=== PATIENT | male | born 1950 | race Caucasian/White ===

== ENCOUNTER 2016-10-15 07:19 | Emergency (ER) | payer OTHER ==
[~2016-10-15] VITALS: Ht 172.7 cm; Wt 61.2 kg
[2016-10-15 08:01] LABS: Basophils # (auto) 0 uL; Basophils % (auto) 0.3 % (0.0-2.0); CONDITION Y; Eosinophils # (auto) 0.3 uL; Eosinophils % (auto) 3.9 % (0.0-7.0); Hematocrit 40.5 % (41.0-53.0); Hemoglobin 13.6 g/dL (13.5-17.5); Lymphocytes # (auto) 1.4 uL; Lymphocytes % (auto) 19.4 % (10.0-50.0); Mean Corpuscular Hemoglobin 31.6 pg (28.0-32.0); Mean Corpuscular Hgb Conc. 33.6 g/dL (32.0-36.0); Mean Corpuscular Volume 94.3 fL (80.0-100.0); Mean Platelet Volume 8.6 fL (7.4-10.4); Monocytes # (auto) 0.8 uL; Monocytes % (auto) 11.2 % (0.0-12.0); Neutrophils # (auto) 4.6 uL; Neutrophils % (auto) 65.2 % (37.0-80.0); Platelet Count (auto) 279 10^3/uL (140-450); Red Cell Distribution Width 14.8 % (11.6-16.0); White Blood Cell 7.1 10^3/uL (4.4-10.8)
[2016-10-15 08:20] LABS: Albumin 3.4 g/dL (3.4-5.0); BUN/Creatinine Ratio 13.4; Bilirubin, Total 0.3 mg/dL (0.2-1.0); Calcium 8.4 mg/dL (8.5-10.1); Potassium 3.3 mmol/L (3.5-5.1); Total Protein 6.6 g/dL (6.4-8.2)
[2016-10-15] MEDS ORDERED: InsuLIN REG 1unit/0.01ml Soln (100units/ml) IV ONE (09:00)
[2016-10-15] MEDS ORDERED: methylPREDNISolone SOD SUCC 125 MG/2 ML VL IV ONE (09:00)
[2016-10-15] MEDS ORDERED: ALBUTEROL SULF 2.5 MG/0.5ML(0.5%) NEB SOLN NEB ONE ×2 (09:00→11:15)
[2016-10-15] MEDS ORDERED: IPRATROPIUM BROM 0.5 MG/2.5ML INH SOL NEB ONE ×2 (09:00→11:15)
[2016-10-15] MEDS ORDERED: SODIUM CHLORIDE 0.9% 1,000 ML IV ONE (09:00)
[2016-10-15 10:22] VITALS: BP 110/63
[2016-10-15 10:23] LABS: Urine Bilirubin Negative (Negative); Urine Blood TRACE /uL (Negative); Urine Color Yellow (Yellow); Urine Ketone Negative (Negative); Urine Nitrite Negative (Negative); Urine RBC 12 /hpf (0 - 3); Urine Urobilinogen Normal (Negative); Urine WBC Clumps PRESENT /hpf (None Seen)
[2016-10-15 10:29] LABS: Urine Glucose 4+ mg/dL (Normal)
[2016-10-15] MEDS ORDERED: POTASSIUM CHL 20 Meq TABLET PO ONE (11:00)
[2016-10-15] MEDS ORDERED: LEVOFLOXACIN 500 MG TAB PO ONE (11:00)
== END 2016-10-15 12:30 | disposition home or self-care (01) ==
LOC: ER 07:19 → EDBD 07:19 → ER 11:52
DX: J45.901 Unspecified asthma with (acute) exacerbation (principal); E11.65 Type 2 diabetes mellitus with hyperglycemia; J44.9 Chronic obstructive pulmonary disease, unspecified; Z99.81 Dependence on supplemental oxygen; F17.210 Nicotine dependence, cigarettes, uncomplicated
CPT/HCPCS: 36415; 71010; 80053; 81001; 82962; 85025; 93005; 94640; 96361; 96374; 96375; 99285; J2930; J7030

== ENCOUNTER 2016-10-27 20:51 | Inpatient (IN) | payer OTHER, MEDICAID ==
[~2016-10-27] VITALS: Ht 182.9 cm; Wt 57.9 kg
[2016-10-27 21:41] LABS: Basophils # (auto) 0 uL; Basophils % (auto) 0.3 % (0.0-2.0); CONDITION Y; Eosinophils # (auto) 0.7 uL; Eosinophils % (auto) 7.9 % (0.0-7.0); Hemoglobin 14.6 g/dL (13.5-17.5); Lymphocytes # (auto) 1.7 uL; Lymphocytes % (auto) 19.7 % (10.0-50.0); Mean Corpuscular Hemoglobin 31.4 pg (28.0-32.0); Mean Corpuscular Hgb Conc. 33.1 g/dL (32.0-36.0); Mean Corpuscular Volume 94.8 fL (80.0-100.0); Mean Platelet Volume 8.5 fL (7.4-10.4); Monocytes # (auto) 0.6 uL; Monocytes % (auto) 7.2 % (0.0-12.0); Neutrophils # (auto) 5.6 uL; Neutrophils % (auto) 64.9 % (37.0-80.0); Platelet Count (auto) 386 10^3/uL (140-450); Red Cell Distribution Width 14.6 % (11.6-16.0); White Blood Cell 8.6 10^3/uL (4.4-10.8)
[2016-10-27 21:58] LABS: INR 0.96 (0.9-1.15); Partial Thromboplastin Time 25.1 sec (22.64-33.71); Prothrombin Time 10.5 sec (9.37-12.3)
[2016-10-27 22:02] LABS: Albumin 3.5 g/dL (3.4-5.0); Anion Gap 7 (5-15); Aspartate Aminotransferase 16 U/L (15-37); BUN/Creatinine Ratio 12.2; Blood Urea Nitrogen 10 mg/dL (7-18); Calcium 8.7 mg/dL (8.5-10.1); Carbon Dioxide 33 mmol/L (21-32); Chloride 103 mmol/L (98-107); GFR African American 120 mL/min; GFR Non-African American 99 mL/min; Glucose 290 mg/dL (74-106); Magnesium 2.2 mg/dL (1.6-2.6); Potassium 4.2 mmol/L (3.5-5.1); Sodium 143 mmol/L (136-145)
[2016-10-27 22:07] LABS: B-Type Natriuretic Peptide 0.87 pg/mL (0-100)
[2016-10-27 22:09] LABS: Allen Test Yes; Base Excess 6.1 mmol/L (-2.0-2.0); Blood 02Sat 98.2 % (96-100); Blood COHb 0.6 % (0.5-1.5); Blood MetHb 0.3 % (0.0-1.5); HCO3 34.3 mmol/L (22-26.0); HHb 1.8 % (0.0-5.0); MODE MASK - BIPAP; O2Hb 97.3 % (94.0-97.0); PCO2 66.1 mmHg (35.0-45.0); PCO2(T) 66.1 mmHg (35.0-45.0); PIP 12; PO2 160.1 mmHg (80.0-100.0); PO2(T) 160.1 mmHg (80.0-100.0); Sample Type Arterial; pH 7.333 (7.350-7.450)
[2016-10-27 22:10] LABS: Alkaline Phosphatase 99 U/L (45-117); Bilirubin, Total 0.4 mg/dL (0.2-1.0); Temperature: 23.5 C (20.0-25.0)
[2016-10-27] MEDS ORDERED: IPRATROPIUM BROM 0.5 MG/2.5ML INH SOL NEB ONE (22:30)
[2016-10-27] MEDS ORDERED: ALBUTEROL SULF 2.5 MG/0.5ML(0.5%) NEB SOLN NEB ONE (22:30)
[2016-10-27] MEDS ORDERED: FUROSEMIDE 20 MG/2 ML VIAL IV ONE (22:30)
[2016-10-28] VITALS (12 sets, daily range): BP systolic 97–130; BP diastolic 60–77
[2016-10-28] MEDS ORDERED: ALBUTEROL SULF 2.5 MG/0.5ML(0.5%) NEB SOLN NEB ONE (00:45)
[2016-10-28] MEDS ORDERED: LEVOFLOXACIN 500MG 100 ML IV ONE (00:45)
[2016-10-28] MEDS ORDERED: methylPREDNISolone SOD SUCC 125 MG/2 ML VL IV ONE (00:45)
[2016-10-28] MEDS ORDERED: IPRATROPIUM BROM 0.5 MG/2.5ML INH SOL NEB ONE (00:45)
[2016-10-28] MEDS ORDERED: SOD CHL 0.45% 1,000 ML IV ONE (01:00)
[2016-10-28] MEDS ORDERED: SUCCINYLCHOLINE CHLORIDE 20 MG/ML 10ML VIAL IV ONE ×2 (03:28→03:30)
[2016-10-28] MEDS ORDERED: ETOMIDATE (2MG/ML) 20ML VIAL IV ONE ×2 (03:28→03:30)
[2016-10-28] MEDS ORDERED: MIDAZOLAM DRIP 50 mg/50mL 50 ML IV ONE (03:30)
[2016-10-28] MEDS ORDERED: ALBUTEROL SULF 2.5 MG/0.5ML(0.5%) NEB SOLN ONE (03:40)
[2016-10-28] MEDS ORDERED: IPRATROPIUM BROM 0.5 MG/2.5ML INH SOL ONE (03:40)
[2016-10-28] MEDS: MIDAZOLAM DRIP 50 mg/50mL 50 ML IV SCH (03:51)
[2016-10-28] MEDS ORDERED: NOREPINEPHRINE BITARTRATE 250 ML IV ONE (04:32)
[2016-10-28] MEDS ORDERED: MORPHINE SULF INJ 2 MG/ML SYRINGE 1ML IV PRN (05:00)
[2016-10-28] MEDS ORDERED: NITROGLYCERIN 0.4 MG SL TAB SL PRN (05:00)
[2016-10-28] MEDS ORDERED: PROPOFOL 100 ML IV ONE (05:06)
[2016-10-28] MEDS ORDERED: DEXTROSE (50%) 50ML SYRG IV PRN (05:15)
[2016-10-28] MEDS: IPRATROPIUM BROM 0.5 MG/2.5ML INH SOL NEB SCH ×4 (05:28→23:58)
[2016-10-28] MEDS: ALBUTEROL SULF 2.5 MG/0.5ML(0.5%) NEB SOLN NEB SCH ×4 (05:28→23:58)
[2016-10-28] MEDS: NOREPINEPHRINE BITARTRATE 250 ML IV SCH (05:33)
[2016-10-28] MEDS: SOD CHL 0.45% 1,000 ML IV SCH ×3 (05:33→15:17)
[2016-10-28] MEDS: PROPOFOL 100 ML IV SCH (05:33)
[2016-10-28] MEDS: ACCU-CHEK COMFORT CURVE STRIP VI SCH ×4 (06:03→23:49)
[2016-10-28] MEDS: InsuLIN REG 1unit/0.01ml Soln (100units/ml) SC SCH ×4 (06:06→23:49)
[2016-10-28] MEDS: methylPREDNISolone SOD SUCC 125 MG/2 ML VL IV SCH ×3 (06:09→21:43)
[2016-10-28 06:30] LABS: Allen Test Yes; Base Excess 3.3 mmol/L (-2.0-2.0); Blood 02Sat 97.1 % (96-100); Blood COHb 0.4 % (0.5-1.5); Blood MetHb 0.2 % (0.0-1.5); HCO3 29.7 mmol/L (22-26.0); HHb 2.9 % (0.0-5.0); MODE VENT - A/C; O2Hb 96.5 % (94.0-97.0); PO2 104.1 mmHg (80.0-100.0); PO2(T) 104.1 mmHg (80.0-100.0); Room 1020-ERT; Sample Type Arterial; pH 7.374 (7.350-7.450)
[2016-10-28] MEDS: LEVOFLOXACIN 500MG 100 ML IV SCH (09:20)
[2016-10-28 10:07] LABS: Basophils # (auto) 0 uL; CONDITION Y; Eosinophils # (auto) 0 uL; Eosinophils % (auto) 0.1 % (0.0-7.0); Hematocrit 39.5 % (41.0-53.0); Hemoglobin 13.2 g/dL (13.5-17.5); Lymphocytes # (auto) 0.4 uL; Lymphocytes % (auto) 5.3 % (10.0-50.0); Mean Corpuscular Hemoglobin 31.4 pg (28.0-32.0); Mean Corpuscular Hgb Conc. 33.5 g/dL (32.0-36.0); Mean Corpuscular Volume 93.6 fL (80.0-100.0); Mean Platelet Volume 8.5 fL (7.4-10.4); Monocytes # (auto) 0.1 uL; Monocytes % (auto) 1.2 % (0.0-12.0); Neutrophils # (auto) 7.1 uL; Neutrophils % (auto) 93.4 % (37.0-80.0); Platelet Count (auto) 374 10^3/uL (140-450); White Blood Cell 7.6 10^3/uL (4.4-10.8)
[2016-10-28 10:27] LABS: Albumin 3.1 g/dL (3.4-5.0); Anion Gap 8 (5-15); Blood Urea Nitrogen 14 mg/dL (7-18); Calcium 8.6 mg/dL (8.5-10.1); Carbon Dioxide 28 mmol/L (21-32); Chloride 103 mmol/L (98-107); Glucose 285 mg/dL (74-106); Potassium 3.9 mmol/L (3.5-5.1); Sodium 139 mmol/L (136-145)
[2016-10-28 10:29] LABS: Aspartate Aminotransferase 30 U/L (15-37); BUN/Creatinine Ratio 18.7; GFR African American 133 mL/min; GFR Non-African American 110 mL/min
[2016-10-28 10:34] LABS: Alkaline Phosphatase 90 U/L (45-117); Bilirubin, Total 0.6 mg/dL (0.2-1.0); Total Protein 6.1 g/dL (6.4-8.2)
[2016-10-28] MEDS ORDERED: PANTOPRAZOLE 40 MG/10 ML VIAL IV ONE (12:15)
[2016-10-28] MEDS ORDERED: ENOXAPARIN SOD 40 MG/0.4 ML SYRINGE SC ONE (12:15)
[2016-10-28] MEDS ORDERED: INSLISPI SC (22:18)
[2016-10-28] MEDS ORDERED: ALBUAER3 IN (22:18)
[2016-10-28] MEDS ORDERED: IPRIH INH (22:18)
[2016-10-29] VITALS (9 sets, daily range): BP systolic 83–128; BP diastolic 49–78
[2016-10-29] MEDS: SOD CHL 0.45% 1,000 ML IV SCH ×3 (01:39→21:21)
[2016-10-29] MEDS: MIDAZOLAM DRIP 50 mg/50mL 50 ML IV SCH ×2 (03:32→08:49)
[2016-10-29 03:43] LABS: Basophils # (auto) 0 uL; Basophils % (auto) 0.2 % (0.0-2.0); CONDITION Y; Eosinophils # (auto) 0 uL; Hematocrit 39.7 % (41.0-53.0); Hemoglobin 13.2 g/dL (13.5-17.5); Lymphocytes # (auto) 0.8 uL; Lymphocytes % (auto) 6.5 % (10.0-50.0); Mean Corpuscular Hemoglobin 31.5 pg (28.0-32.0); Mean Corpuscular Hgb Conc. 33.2 g/dL (32.0-36.0); Mean Corpuscular Volume 94.9 fL (80.0-100.0); Mean Platelet Volume 8.5 fL (7.4-10.4); Monocytes # (auto) 0.3 uL; Monocytes % (auto) 2.4 % (0.0-12.0); Neutrophils # (auto) 10.6 uL; Neutrophils % (auto) 90.9 % (37.0-80.0); Platelet Count (auto) 326 10^3/uL (140-450); White Blood Cell 11.7 10^3/uL (4.4-10.8)
[2016-10-29 04:04] LABS: Albumin 2.8 g/dL (3.4-5.0); BUN/Creatinine Ratio 24.6; Calcium 8.4 mg/dL (8.5-10.1); Potassium 3.7 mmol/L (3.5-5.1)
[2016-10-29 04:06] LABS: Bilirubin, Total 0.4 mg/dL (0.2-1.0); Total Protein 5.8 g/dL (6.4-8.2)
[2016-10-29] MEDS: NOREPINEPHRINE BITARTRATE 250 ML IV SCH (04:51)
[2016-10-29] MEDS: PROPOFOL 100 ML IV SCH ×2 (05:17→08:49)
[2016-10-29] MEDS: InsuLIN REG 1unit/0.01ml Soln (100units/ml) SC SCH ×3 (05:55→18:12)
[2016-10-29] MEDS: ACCU-CHEK COMFORT CURVE STRIP VI SCH ×3 (05:55→18:12)
[2016-10-29] MEDS: methylPREDNISolone SOD SUCC 125 MG/2 ML VL IV SCH (05:56)
[2016-10-29] MEDS: ALBUTEROL SULF 2.5 MG/0.5ML(0.5%) NEB SOLN NEB SCH ×3 (06:07→18:23)
[2016-10-29] MEDS: IPRATROPIUM BROM 0.5 MG/2.5ML INH SOL NEB SCH ×3 (06:07→18:23)
[2016-10-29 09:19] LABS: Allen Test Modified; Base Excess 3.1 mmol/L (-2.0-2.0); Blood 02Sat 95.1 % (96-100); Blood COHb 0.3 % (0.5-1.5); Blood MetHb 0.3 % (0.0-1.5); HCO3 28.8 mmol/L (22-26.0); HHb 4.9 % (0.0-5.0); MODE VENT - A/C; O2Hb 94.5 % (94.0-97.0); PO2 79.3 mmHg (80.0-100.0); PO2(T) 79.3 mmHg (80.0-100.0); Room 1020-ERT; Sample Type Arterial; pH 7.396 (7.350-7.450)
[2016-10-29] MEDS: PANTOPRAZOLE 40 MG/10 ML VIAL IV SCH (09:41)
[2016-10-29] MEDS: ENOXAPARIN SOD 40 MG/0.4 ML SYRINGE SC SCH (09:41)
[2016-10-29] MEDS: LEVOFLOXACIN 500MG 100 ML IV SCH (09:41)
[2016-10-29 16:56] LABS: Allen Test Modified; Base Excess 3.5 mmol/L (-2.0-2.0); Blood 02Sat 94.3 % (96-100); Blood COHb 0.3 % (0.5-1.5); Blood MetHb 0.3 % (0.0-1.5); HCO3 27.5 mmol/L (22-26.0); HHb 5.7 % (0.0-5.0); MODE VENT - CPAP; O2Hb 93.7 % (94.0-97.0); PCO2 39.8 mmHg (35.0-45.0); PCO2(T) 39.8 mmHg (35.0-45.0); PO2 74.3 mmHg (80.0-100.0); PO2(T) 74.3 mmHg (80.0-100.0); Pressure Support 10; Room 1020-ERT; Sample Type Arterial; Spont Vt 970; pH 7.458 (7.350-7.450)
[2016-10-29 18:01] LABS: Basophils # (auto) 0.1 uL; Basophils % (auto) 0.4 % (0.0-2.0); CONDITION Y; Eosinophils # (auto) 0 uL; Hematocrit 36.9 % (41.0-53.0); Hemoglobin 12.3 g/dL (13.5-17.5); Lymphocytes # (auto) 0.9 uL; Lymphocytes % (auto) 6.1 % (10.0-50.0); Mean Corpuscular Hemoglobin 31.3 pg (28.0-32.0); Mean Corpuscular Hgb Conc. 33.2 g/dL (32.0-36.0); Mean Corpuscular Volume 94.3 fL (80.0-100.0); Monocytes # (auto) 0.5 uL; Monocytes % (auto) 3.6 % (0.0-12.0); Neutrophils # (auto) 13.3 uL; Neutrophils % (auto) 89.9 % (37.0-80.0); Platelet Count (auto) 325 10^3/uL (140-450); Red Cell Distribution Width 13.8 % (11.6-16.0); White Blood Cell 14.8 10^3/uL (4.4-10.8)
[2016-10-29 18:24] LABS: Albumin 2.7 g/dL (3.4-5.0); Alkaline Phosphatase 79 U/L (45-117); Anion Gap 5 (5-15); Aspartate Aminotransferase 11 U/L (15-37); BUN/Creatinine Ratio 29.4; Bilirubin, Direct < 0.1 mg/dL (0-0.2); Bilirubin, Total 0.3 mg/dL (0.2-1.0); Blood Urea Nitrogen 20 mg/dL (7-18); Calcium 8.3 mg/dL (8.5-10.1); Carbon Dioxide 30 mmol/L (21-32); Chloride 105 mmol/L (98-107); GFR African American 149 mL/min; GFR Non-African American 123 mL/min; Glucose 237 mg/dL (74-106); Magnesium 2.1 mg/dL (1.6-2.6); Potassium 3.7 mmol/L (3.5-5.1); Sodium 140 mmol/L (136-145); Total Protein 5.5 g/dL (6.4-8.2)
[2016-10-29 18:29] LABS: INR 0.97 (0.9-1.15); Prothrombin Time 10.6 sec (9.37-12.3)
[2016-10-29] MEDS: methylPREDNISolone SOD SUCC 40 MG/ML VL IV SCH (22:21)
[2016-10-29] MEDS ORDERED: ALBUTEROL SULF 2.5 MG/0.5ML(0.5%) NEB SOLN ONE ×2 (22:26→22:43)
[2016-10-29] MEDS ORDERED: IPRATROPIUM BROM 0.5 MG/2.5ML INH SOL ONE (22:26)
[2016-10-29] MEDS ORDERED: ALBUTEROL SULF 2.5 MG/0.5ML(0.5%) NEB SOLN NEB ONE ×2 (22:30→22:43)
[2016-10-29] MEDS ORDERED: IPRATROPIUM BROM 0.5 MG/2.5ML INH SOL NEB ONE (23:45)
[2016-10-30] VITALS (15 sets, daily range): BP systolic 92–132; BP diastolic 48–67
[2016-10-30] MEDS: ACCU-CHEK COMFORT CURVE STRIP VI SCH ×4 (00:05→18:18)
[2016-10-30] MEDS: InsuLIN REG 1unit/0.01ml Soln (100units/ml) SC SCH ×4 (00:18→18:19)
[2016-10-30] MEDS: ALBUTEROL SULF 2.5 MG/0.5ML(0.5%) NEB SOLN NEB SCH ×6 (02:18→22:39)
[2016-10-30] MEDS: IPRATROPIUM BROM 0.5 MG/2.5ML INH SOL NEB SCH ×6 (02:19→22:39)
[2016-10-30 03:26] LABS: Basophils # (auto) 0 uL; Basophils % (auto) 0.1 % (0.0-2.0); CONDITION Y; Eosinophils # (auto) 0 uL; Hematocrit 37.1 % (41.0-53.0); Hemoglobin 12.2 g/dL (13.5-17.5); Lymphocytes # (auto) 0.7 uL; Lymphocytes % (auto) 3.8 % (10.0-50.0); Mean Corpuscular Hemoglobin 31.1 pg (28.0-32.0); Mean Corpuscular Volume 94.2 fL (80.0-100.0); Mean Platelet Volume 8.7 fL (7.4-10.4); Monocytes # (auto) 0.6 uL; Monocytes % (auto) 3.1 % (0.0-12.0); Neutrophils # (auto) 16.9 uL; Platelet Count (auto) 319 10^3/uL (140-450); Red Cell Distribution Width 14.1 % (11.6-16.0); White Blood Cell 18.2 10^3/uL (4.4-10.8)
[2016-10-30 03:33] LABS: INR 0.97 (0.9-1.15); Partial Thromboplastin Time 23.7 sec (22.64-33.71); Prothrombin Time 10.6 sec (9.37-12.3)
[2016-10-30 03:55] LABS: Albumin 2.8 g/dL (3.4-5.0); Alkaline Phosphatase 83 U/L (45-117); Anion Gap 6 (5-15); Aspartate Aminotransferase 22 U/L (15-37); BUN/Creatinine Ratio 32.5; Bilirubin, Direct < 0.1 mg/dL (0-0.2); Bilirubin, Total 0.2 mg/dL (0.2-1.0); Blood Urea Nitrogen 26 mg/dL (7-18); Calcium 8.5 mg/dL (8.5-10.1); Carbon Dioxide 28 mmol/L (21-32); Chloride 105 mmol/L (98-107); GFR African American 124 mL/min; GFR Non-African American 102 mL/min; Glucose 251 mg/dL (74-106); Magnesium 2.1 mg/dL (1.6-2.6); Potassium 3.8 mmol/L (3.5-5.1); Sodium 139 mmol/L (136-145); Total Protein 5.8 g/dL (6.4-8.2)
[2016-10-30] MEDS: SOD CHL 0.45% 1,000 ML IV SCH ×3 (07:43→22:27)
[2016-10-30] MEDS: NOREPINEPHRINE BITARTRATE 250 ML IV SCH (09:21)
[2016-10-30] MEDS: LEVOFLOXACIN 500MG 100 ML IV SCH (10:40)
[2016-10-30] MEDS: methylPREDNISolone SOD SUCC 40 MG/ML VL IV SCH ×2 (10:40→22:07)
[2016-10-30] MEDS: ENOXAPARIN SOD 40 MG/0.4 ML SYRINGE SC SCH (10:40)
[2016-10-30] MEDS: PANTOPRAZOLE 40 MG/10 ML VIAL IV SCH (10:40)
[2016-10-30] MEDS ORDERED: PNEUMOCOCCAL VACC POLYS 25 MCG/0.5 ML VIAL IM ONE (12:00)
[2016-10-30] MEDS: TAMSULOSIN HYDROCHLORIDE 0.4 MG CAP PO SCH (18:18)
[2016-10-31] MEDS: ALBUTEROL SULF 2.5 MG/0.5ML(0.5%) NEB SOLN NEB SCH ×4 (02:06→15:31)
[2016-10-31] MEDS: IPRATROPIUM BROM 0.5 MG/2.5ML INH SOL NEB SCH ×4 (02:06→15:31)
[2016-10-31 04:49] VITALS: BP 111/69
[2016-10-31] MEDS: ACCU-CHEK COMFORT CURVE STRIP VI SCH ×3 (05:24→17:11)
[2016-10-31] MEDS: InsuLIN REG 1unit/0.01ml Soln (100units/ml) SC SCH ×3 (05:26→17:00)
[2016-10-31 05:47] LABS: Basophils # (auto) 0 uL; Basophils % (auto) 0.4 % (0.0-2.0); CONDITION Y; Eosinophils # (auto) 0 uL; Hematocrit 35.9 % (41.0-53.0); Lymphocytes # (auto) 0.8 uL; Lymphocytes % (auto) 8.8 % (10.0-50.0); Mean Corpuscular Hemoglobin 31.5 pg (28.0-32.0); Mean Corpuscular Hgb Conc. 33.4 g/dL (32.0-36.0); Mean Corpuscular Volume 94.2 fL (80.0-100.0); Mean Platelet Volume 9.1 fL (7.4-10.4); Monocytes # (auto) 0.5 uL; Monocytes % (auto) 5.6 % (0.0-12.0); Neutrophils # (auto) 7.4 uL; Neutrophils % (auto) 85.2 % (37.0-80.0); Platelet Count (auto) 272 10^3/uL (140-450); Red Cell Distribution Width 14.4 % (11.6-16.0); White Blood Cell 8.7 10^3/uL (4.4-10.8)
[2016-10-31 06:00] LABS: Calcium 7.8 mg/dL (8.5-10.1); Potassium 3.8 mmol/L (3.5-5.1)
[2016-10-31 06:02] LABS: BUN/Creatinine Ratio 42.1
[2016-10-31 09:13] VITALS: BP 107/62
[2016-10-31] MEDS: ENOXAPARIN SOD 40 MG/0.4 ML SYRINGE SC SCH (10:30)
[2016-10-31] MEDS: LEVOFLOXACIN 500MG 100 ML IV SCH (10:30)
[2016-10-31] MEDS: PANTOPRAZOLE 40 MG/10 ML VIAL IV SCH (10:31)
[2016-10-31] MEDS: methylPREDNISolone SOD SUCC 40 MG/ML VL IV SCH (10:32)
[2016-10-31 13:00] VITALS: BP 116/53
[2016-10-31] MEDS: SOD CHL 0.45% 1,000 ML IV SCH (13:24)
[2016-10-31 15:53] VITALS: BP 116/53
[2016-10-31] MEDS: TAMSULOSIN HYDROCHLORIDE 0.4 MG CAP PO SCH (17:11)
[2016-10-31] MEDS ORDERED: InsuLIN REG 1unit/0.01ml Soln (100units/ml) SC SCH (22:00)
[2016-11-01] MEDS ORDERED: PNEUMOCOCCAL VACC POLYS 25 MCG/0.5 ML VIAL IM ONE ×2 (10:00)
== END 2016-10-31 17:50 | disposition home health service (06) | DRG 208 ==
LOC: ER 20:51 → EDBD 20:51 → TELE 20:52 → ICU WEST 10-30 02:42 → TELE-CENTR 10-30 16:26
PROVIDERS: ADMIT Internal Medicine; ATTEND Internal Medicine
PROC: 5A1945Z Respiratory Ventilation, 24-96 Consecutive Hours (ICD-10-PCS; principal; 2016-10-28)
PROC: 0BH17EZ Insertion of Endotracheal Airway into Trachea, Via Natural or Artificial Opening (ICD-10-PCS; 2016-10-28)
PROC: 5A09357 Assistance with Respiratory Ventilation, Less than 24 Consecutive Hours, Continuous Positive Airway Pressure (ICD-10-PCS; 2016-10-28)
DX: J96.21 Acute and chronic respiratory failure with hypoxia (principal); E87.2 Acidosis; R64 Cachexia; J44.1 Chronic obstructive pulmonary disease with (acute) exacerbation; Z68.1 Body mass index [BMI] 19.9 or less, adult; N30.90 Cystitis, unspecified without hematuria; J96.12 Chronic respiratory failure with hypercapnia; I10 Essential (primary) hypertension; E11.65 Type 2 diabetes mellitus with hyperglycemia; F17.210 Nicotine dependence, cigarettes, uncomplicated; Z96.611 Presence of right artificial shoulder joint; Z82.49 Family history of ischemic heart disease and other diseases of the circulatory system; Z99.81 Dependence on supplemental oxygen; Z79.84 Long term (current) use of oral hypoglycemic drugs
CPT/HCPCS: 31500; 36415; 36600; 51702; 71010; 80048; 80053; 80076; 82805; 82962; 83036; 83735; 83880; 84484; 85025; 85379; 85610; 85730; 87045; 87070; 87081; 87177; 87205; 87493; 87899; 93005; 93306; 94003; 94640; 94660; 94761; 96365; 96367; 96375; 97163; C9113; J0330; J1815; J1956; J2250; J2704

== ENCOUNTER 2016-11-21 10:42 | Emergency (ER) | payer OTHER, MEDICAID ==
[~2016-11-21] VITALS: Ht 188 cm; Wt 65.8 kg
[~2016-11-21 10:42] MED LIST: ALBUAER3 IN; INSLISPI SC; IPRIH INH
[2016-11-21 11:04] LABS: Allen Test Yes; Base Excess 2.5 mmol/L (-2.0-2.0); Blood 02Sat 96.2 % (96-100); Blood MetHb 0.2 % (0.0-1.5); HHb 3.7 % (0.0-5.0); MODE NASAL CANNULA; O2Hb 94.1 % (94.0-97.0); Sample Type Arterial; pH 7.436 (7.350-7.450)
[2016-11-21 11:12] LABS: Basophils # (auto) 0.1 uL; Basophils % (auto) 1.1 % (0.0-2.0); Eosinophils # (auto) 0.3 uL; Eosinophils % (auto) 3.7 % (0.0-7.0); Lymphocytes % (auto) 26.9 % (10.0-50.0); Mean Corpuscular Hemoglobin 31.5 pg (28.0-32.0); Mean Corpuscular Hgb Conc. 33.4 g/dL (32.0-36.0); Mean Corpuscular Volume 94.3 fL (80.0-100.0); Mean Platelet Volume 8.6 fL (7.4-10.4); Monocytes # (auto) 0.6 uL; Monocytes % (auto) 8.7 % (0.0-12.0); Neutrophils # (auto) 4.4 uL; Neutrophils % (auto) 59.6 % (37.0-80.0); Nucleated Red Blood Cells % 0.1 %; Platelet Count (auto) 261 10^3/uL (140-450); Red Cell Distribution Width 13.9 % (11.6-16.0); White Blood Cell 7.4 10^3/uL (4.4-10.8)
[2016-11-21 11:37] LABS: Albumin 3.5 g/dL (3.4-5.0); BUN/Creatinine Ratio 17.9; Bilirubin, Total 0.2 mg/dL (0.2-1.0); Calcium 8.7 mg/dL (8.5-10.1); Potassium 3.7 mmol/L (3.5-5.1); Total Protein 6.9 g/dL (6.4-8.2)
[2016-11-21] MEDS ORDERED: methylPREDNISolone SOD SUCC 125 MG/2 ML VL IV ONE (12:30)
[2016-11-21] MEDS ORDERED: IPRATROPIUM BROM 0.5 MG/2.5ML INH SOL NEB ONE (12:30)
[2016-11-21] MEDS ORDERED: ALBUTEROL SULF 2.5 MG/0.5ML(0.5%) NEB SOLN NEB ONE (12:30)
[2016-11-21 14:52] VITALS: BP 103/57
== END 2016-11-21 15:04 | disposition home or self-care (01) ==
LOC: EDBD 10:42 → ER 10:42
DX: J44.9 Chronic obstructive pulmonary disease, unspecified (principal); E11.9 Type 2 diabetes mellitus without complications; F17.210 Nicotine dependence, cigarettes, uncomplicated
CPT/HCPCS: 36415; 36600; 71010; 80053; 82805; 85025; 93005; 94640; 96374; 99285; J2930

== ENCOUNTER 2017-02-18 03:29 | Emergency (ER) | payer OTHER, MEDICAID ==
[~2017-02-18] VITALS: Ht 180.3 cm; Wt 53.1 kg
[2017-02-18 04:22] LABS: Eosinophils # (auto) 0.1 uL; Hemoglobin 11.3 g/dL (13.5-17.5); Lymphocytes # (auto) 1.3 uL; Monocytes # (auto) 0.8 uL
[2017-02-18 04:24] LABS: Basophils # (auto) 0.3 uL; Basophils % (auto) 2.6 % (0.0-2.0); Eosinophils % (auto) 1.1 % (0.0-7.0); Lymphocytes % (auto) 12.8 % (10.0-50.0); Mean Corpuscular Hemoglobin 31.1 pg (28.0-32.0); Mean Corpuscular Hgb Conc. 34.1 g/dL (32.0-36.0); Mean Corpuscular Volume 91.3 fL (80.0-100.0); Mean Platelet Volume 6.8 fL (6.9-10.8); Monocytes % (auto) 7.6 % (0.0-12.0); Neutrophils # (auto) 7.9 uL; Neutrophils % (auto) 75.9 % (37.0-80.0); Platelet Count (auto) 479 10^3/uL (140-450); Red Cell Distribution Width 13.4 % (11.8-14.3); White Blood Cell 10.4 10^3/uL (4.4-10.8)
[2017-02-18 04:58] LABS: Albumin 2.5 g/dL (3.4-5.0); Alkaline Phosphatase 96 U/L (45-117); Anion Gap 8 (5-15); Aspartate Aminotransferase 32 U/L (15-37); BUN/Creatinine Ratio 31.1; Bilirubin, Total 0.3 mg/dL (0.2-1.0); Blood Urea Nitrogen 14 mg/dL (7-18); Calcium 7.8 mg/dL (8.5-10.1); Carbon Dioxide 27 mmol/L (21-32); Chloride 99 mmol/L (98-107); GFR African American 239 mL/min; GFR Non-African American 198 mL/min; Glucose 108 mg/dL (74-106); Magnesium 1.9 mg/dL (1.6-2.6); Potassium 3.6 mmol/L (3.5-5.1); Sodium 134 mmol/L (136-145); Total Protein 5.9 g/dL (6.4-8.2)
[2017-02-18] MEDS ORDERED: FLEET ENEMA(ADULT) 135 ML PR ONE ×2 (09:28→09:45)
[2017-02-18] MEDS ORDERED: ALBUTEROL SULF 2.5 MG/0.5ML(0.5%) NEB SOLN NEB ONE (10:30)
[2017-02-18 10:56] LABS: Urine Bilirubin Negative (Negative); Urine Blood TRACE /uL (Negative); Urine Color Yellow (Yellow); Urine Glucose 3+ mg/dL (Normal); Urine Ketone Negative (Negative); Urine Nitrite Negative (Negative); Urine RBC 68 /hpf (0 - 3); Urine Urobilinogen Normal (Negative); Urine WBC Clumps PRESENT /hpf (None Seen)
[2017-02-18 11:39] VITALS: BP 118/66
== END 2017-02-18 11:41 | disposition home or self-care (01) ==
LOC: EDBD 03:29 → ER 03:32
DX: K56.41 Fecal impaction (principal); R06.02 Shortness of breath; J44.9 Chronic obstructive pulmonary disease, unspecified; E11.9 Type 2 diabetes mellitus without complications; F17.210 Nicotine dependence, cigarettes, uncomplicated; Z79.4 Long term (current) use of insulin
CPT/HCPCS: 36415; 71010; 74176; 80053; 80307; 81001; 82962; 83690; 83735; 84484; 85025; 93005; 94640; 94761